=== PATIENT | female | born 1965 | race Caucasian/White ===

== ENCOUNTER 2017-04-14 14:08 | Outpatient (CLI) | payer OTHER ==
[~2017-04-14 14:08] MED LIST: AMBIEN10 MG PO; CIPRO750 MG PO; Colace 100MG PO; ELAVIL PO; NEURONTIN PO; PERCOCET 5/3251 TAB PO; ULTRAM50 MG PO
== END 2017-04-14 15:03 | disposition home or self-care (01) ==
LOC: RAD 501 14:08
DX: M41.20 Other idiopathic scoliosis, site unspecified (principal)

== ENCOUNTER 2020-01-18 10:02 | Outpatient (CLI) | payer OTHER | END 2020-01-18 10:08 | disposition home or self-care (01) | LOC: RX STUDY 10:02 | PROVIDERS: ATTEND Internal Medicine Gastroenterology | DX: R10.13 Epigastric pain (principal); R11.0 Nausea; R11.2 Nausea with vomiting, unspecified; R14.0 Abdominal distension (gaseous) ==

== ENCOUNTER 2022-05-22 09:21 | Outpatient (CLI) | payer OTHER | END 2022-05-22 09:25 | disposition home or self-care (01) | LOC: SONOGRAMA 09:21 | PROVIDERS: ATTEND Pathology Anatomic Pathology & Clinical Pathology | DX: D44.0 Neoplasm of uncertain behavior of thyroid gland (principal); E07.9 Disorder of thyroid, unspecified; E04.1 Nontoxic single thyroid nodule ==

== ENCOUNTER 2023-01-05 08:01 | Outpatient (CLI) | payer OTHER | END 2023-01-05 08:05 | disposition home or self-care (01) | LOC: SONOGRAMA 08:01 | PROVIDERS: ATTEND Pathology Anatomic Pathology & Clinical Pathology | DX: D44.0 Neoplasm of uncertain behavior of thyroid gland (principal); E07.9 Disorder of thyroid, unspecified ==